=== PATIENT | female | born 1985 | race Caucasian/White ===

== ENCOUNTER → 2021-08-26 01:07 | Outpatient (CLI) | payer OTHER, SELFPAY ==
[2021-08-26 14:38] LABS: SARS-CoV-2 RNA PCR Negative
== END ==
PROVIDERS: PCP Internal Medicine; Visit Provider Internal Medicine
DX: J01.90 Acute sinusitis, unspecified (principal); Z20.822 Contact with and (suspected) exposure to COVID-19
CPT/HCPCS: C9803; U0003; U0005

== ENCOUNTER 2022-08-22 08:24 | Outpatient (CLI) | payer OTHER, SELFPAY ==
[2022-08-29 13:30] LABS: CALR Exon 9 Mutation Not Detected (Not Detected); CSF3R Exon 14/17 Mutation Not Detected (Not Detected); JAK2 Exon 12 Mutation Not Detected (Not Detected); JAK2 V617F Mutation Not Detected (Not Detected); MPL Exon 10 Mutation Not Detected (Not Detected); Specimen Source Blood
== END 2022-08-22 08:25 | disposition home or self-care (01) ==
LOC: ANHLAB 08:25
PROVIDERS: PCP Internal Medicine; Visit Provider Internal Medicine Hematology & Oncology
DX: D75.1 Secondary polycythemia (principal)
CPT/HCPCS: 36415; 81219; 81270; 81279; 81339; 81479